=== PATIENT | male | born 1955 | race Caucasian/White ===

== ENCOUNTER → 2016-03-12 | Outpatient (CLI) | payer BC | LOC: OD 08:48 | PROVIDERS: ATTEND Urology | DX: R97.20 Elevated prostate specific antigen [PSA] (principal) | CPT/HCPCS: 36415; 84153 ==

== ENCOUNTER 2016-03-27 13:19 | Emergency (ER) | payer BC ==
--- NOTE | 2016-03-27 14:01 | ER Document Report ---
ED Medical Screen (RME) - General Stated Complaint: URINARY PROBLEM Time seen by provider: 13:58 Mode of Arrival: Ambulatory Information source: Patient TRAVEL OUTSIDE OF THE [place] IN LAST 30 DAYS: No - HPI Patient complains to provider of: BLOOD IN URINE Onset: Just prior to arrival Onset/Duration: Sudden Context: CATHING SELF WAITING ON BLADDER PROCEDURE. HAS SEEN SOME BLOOD IN URINE BUT TODAY LARGE AMOUNT OF BLOOD AND CLOTS ABOUT 12 PM Quality of pain: Achy Severity: Mild Pain Level: 2 Associated Symptoms: Dysuria Exacerbated by: Denies Relieved by: Denies Similar symptoms previously: Yes Recently seen / treated by doctor: Yes - Related Data Smoking: Cigarettes Frequency of alcohol use: None Drug Abuse: None Allergies/Adverse Reactions: No Known Allergies Allergy (Verified 04/14/15 18:10) Physical Exam - Vital signs Vitals: Temp Pulse Resp BP Pulse Ox 97.9 F 96 16 140/82 H 95 03/27/16 13:46 03/27/16 13:46 03/27/16 13:46 03/27/16 13:46 03/27/16 13:46 Course - Vital Signs Vital signs: Temp Pulse Resp BP Pulse Ox 97.9 F 96 16 140/82 H 95 03/27/16 13:46 03/27/16 13:46 03/27/16 13:46 03/27/16 13:46 03/27/16 13:46
--- NOTE | 2016-03-27 17:29 | ER Document Report ---
ED GI/ - General Chief Complaint: Urinary Problem Stated Complaint: URINARY PROBLEM Time seen by provider: 16:40 Mode of Arrival: Ambulatory Information source: Patient, [facility] Records Notes: This 61-year-old male patient comes emergency room complaining of blood in the urine today. He has been self cathetering for the past 2 weeks. He noted some blood in the urine today. While he was in the waiting room he was able to urinate about 40-50 mL's of bloody urine. He was using a coud catheter initially, has used a straight catheter for the past week. He has been seeing Dr. Humphrey. He had a cystoscopy on this one year ago done by Dr. Humphrey. He states he was placed on a medicine that should help him but will take about a year. This sounds like he was placed on a medicine to shrink his prostate gland. He also notes a right groin bulging when he is on his feet for long time. An ultrasound done a year ago showed large post-void residual and a large bladder diverticula. TRAVEL OUTSIDE OF THE [place] IN LAST 30 DAYS: No - Related Data Allergies/Adverse Reactions: No Known Allergies Allergy (Verified 03/27/16 14:01) Past Medical History - General Information source: Patient - Social History Smoking Status: Current Every Day Smoker Cigarette use (# per day): Yes Smoking Education Provided: No Frequency of alcohol use: None Drug Abuse: None Occupation: retired Lives with: Alone Family History: Reviewed & Not Pertinent Patient has suicidal ideation: No Patient has homicidal ideation: No Renal/ Medical History: Reports: Hx Benign Prostatic Hyperplasia Past Surgical History: Reports: Other - Cystoscopy Review of Systems - Review of Systems Constitutional: No symptoms reported EENT: No symptoms reported Cardiovascular: No symptoms reported Respiratory: No symptoms reported Gastrointestinal: No symptoms reported Genitourinary: See HPI Male Genitourinary: See HPI Musculoskeletal: No symptoms reported Skin: No symptoms reported Hematologic/Lymphatic: No symptoms reported Neurological/Psychological: No symptoms reported Physical Exam - Vital signs Vitals: Temp Pulse Resp BP Pulse Ox 97.9 F 96 16 140/82 H 95 03/27/16 13:46 03/27/16 13:46 03/27/16 13:46 03/27/16 13:46 03/27/16 13:46 Interpretation: Normal - General General appearance: Appears well, Alert In distress: None - HEENT Head: Normocephalic, Atraumatic Eyes: Normal Pupils: PERRL - Respiratory Respiratory status: No respiratory distress - Cardiovascular Rhythm: Regular - Abdominal Inspection: Normal Bowel sounds: Normal Tenderness: Nontender - Genitourinary Inspection: Normal Scrotum: Normal Notes: Bilateral inguinal hernias which are felt when the patient strains, the right is larger than the left, they are not tender. - Back Back: Normal - Extremities General upper extremity: Normal inspection General lower extremity: Normal inspection - Neurological Neuro grossly intact: Yes - Psychological Associated symptoms: Normal affect, Normal mood - Skin Skin Temperature: Warm Skin Moisture: Dry Skin Color: Normal Course - Re-evaluation Re-evalutation: 03/27/16 18:57 The urine shows too numerous to count WBCs and too numerous to count RBCs. He was treated here about one year ago for UTI after cystoscopy which was not cultured, but he was treated with Cipro and reports if patient cleared up within 2-3 days. We'll give him a large dose of Keflex and start him on Cipro and see what the culture shows. - Vital Signs Vital signs: Temp Pulse Resp BP Pulse Ox 98.1 F 84 18 126/80 H 100 03/27/16 19:11 03/27/16 19:11 03/27/16 19:11 03/27/16 19:11 03/27/16 19:11 - Laboratory Laboratory results interpreted by me: 03/27/16 17:30 Urine Protein 100 H Urine Blood MODERATE H Urine Nitrite POSITIVE H Ur Leukocyte Esterase MODERATE H Discharge - Discharge Clinical Impression: Urinary tract infection Qualifiers: Urinary tract infection type: acute cystitis Hematuria presence: with hematuria Qualified Code(s): N30.01 - Acute cystitis with hematuria Bilateral inguinal hernia Qualifiers: Obstruction and gangrene presence: without obstruction or gangrene Recurrence: not specified as recurrent Qualified Code(s): K40.20 - Bilateral inguinal hernia , without obstruction or gangrene, not specified as recurrent Condition: Stable Disposition: HOME, SELF-CARE Additional Instructions: Urinary Tract Infection: Your evaluation indicates that you have a urinary tract infection. This is due to germs growing in the bladder. This is a common problem. This infection usually responds quickly to antibiotics. Your antibiotic should be taken exactly as prescribed. Drink plenty of fluids -- three to four quarts a day. Occasionally, a bladder anesthetic will be prescribed to help stop the feeling of urgency until the antibiotic has a chance to clear the infection. This may cause your urine to be dark orange. Certain urine infections require a culture. If the doctor obtained a culture, the results will be back in two days. You should call to see if a change in treatment is needed. A repeat urinalysis after you finish treatment is often recommended. The physician will let you know if further testing is required. Call the doctor if you develop fever, chills, flank pain, inability to urinate, or blood in the urine. TAKE THE MEDICATION PRESCRIBED. DRINK PLENTY OF FLUIDS. DRAIN YOUR BLADDER MORE FREQUENTLY. LAY DOWN, ROLL OVER IN BED, AND STAND UP FREQUENTLY TO PREVENT LARGE CLOTS FROM FORMING IN YOUR BLADDER. FOLLOW UP WITH YOUR UROLOGIST THIS WEEK. Prescriptions: Ciprofloxacin HCl [Cipro 250 mg Tablet] 1 tab PO BID #14 tab Referrals: ALYSSA HUMPHREY MD [ACTIVE STAFF] - Follow up as needed Scribe Attestation: 03/27/16 19:01 I personally performed the services described in the documentation, reviewed and edited the documentation which was dictated to the scribe in my presence, and it accurately records my words and actions.
[2016-03-27 18:29] LABS: APPEARANCE,URINE CLOUDY; BILIRUBIN,URINE NEGATIVE (NEGATIVE); GLUCOSE, URINE NEGATIVE (NEGATIVE); KETONES,URINE NEGATIVE (NEGATIVE); LEUKOCYTE ESTERASE,URINE MODERATE (NEGATIVE); NITRITE,URINE POSITIVE (NEGATIVE); PROTEIN,URINE 100 mg/dL (NEGATIVE); URINE SPECIFIC GRAVITY 1.008; UROBILINOGEN,URINE NEGATIVE mg/dL (<2.0)
[2016-03-27] MEDS ORDERED: SULFAMETHOXAZOLE/TRIMETHOPRIM 800-160 MG TABLET PO ONE (18:50)
[2016-03-27] MEDS ORDERED: CEPHALEXIN 500 MG CAPSULE PO ONE (18:57)
[2016-03-27] MEDS ORDERED: CIPROFLOXACIN HCL 500 MG TABLET PO ONE (18:58)
[2016-03-27 19:12] VITALS: BP 126/80
== END 2016-03-27 19:12 | disposition home or self-care (01) ==
LOC: ER 13:19
DX: N30.01 Acute cystitis with hematuria (principal); K40.20 Bilateral inguinal hernia, without obstruction or gangrene, not specified as recurrent; F17.210 Nicotine dependence, cigarettes, uncomplicated; Z79.899 Other long term (current) drug therapy
CPT/HCPCS: 51701; 81001; 87086; 87088; 87186; 99283

== ENCOUNTER → 2016-03-28 | Outpatient (CLI) | payer BC ==
[~2016-03-28] MED LIST: REGADENOSON INJ 0.4 MG/5 ML DISP.SYRIN IV ONE
--- NOTE | 2016-03-28 18:24 | DRAGON STRESS TEST REPORT ---
INTRAVENOUS LEXISCAN CARDIOLITE STRESS TEST USING SINGLE PHOTON EMMISION COMPUTERIZED TOMOGRAPHIC. DATE OF PROCEDURE: March 28, 2016 INDICATION : Shortness of breath, cardiac clearance CARDIAC RISK FACTORS: Hypertension, dyslipidemia RESTING EKG: Sinus rhythm, no Baseline ST-T wave changes STRESS EKG: No significant changes noted with LexiScan bolus REASON FOR TERMINATION: Protocol. PROCEDURE REPORT: Baseline heart rate 67 beats per minute with blood pressure of on 122/78. Patient had no significant complaints. Heart rate at 2 minutes post bolus 96 with a blood pressure of 109/60. 3 minutes post bolus heart rate 93 with blood pressure of 116/57. No significant EKG changes were noted. Patient had no significant complaints during the procedure or postprocedure. CONCLUSIONS: Normal EKG and hemodynamic response to IV LexiScan. NUCLEAR DATA: At rest the patient was given 11.81 millicuries of technetium 99 sestamibi injected intravenously. As per protocol rest gated SPECT images were obtained. Subsequently the patient was given intravenous LexiScan at a dose of 0.4 mg in 5 mL intravenously, followed by flush with normal saline. Subsequently the stress dose of 35.7 millicuries of technetium 99 sestamibi was injected intravenously. As per protocol stress gated images were obtained. NUCLEAR INTERPRETATION: Both raw and processed data were used for interpretation. Visual, qualitative, computer-generated quantitative data was used. There was good myocardial uptake of technetium compound. Motion artifact and soft tissue attenuations were noted. Increased visceral uptake was noted. No definitive areas of transient perfusion defect noted. No definitive areas of fixed perfusion defect or scars noted. EKG gated imaging showed LV EF at 56 %, rest and stress gated EF similar visually. T. I D. ratio was 1.13. Lung heart ratio noted to be within normal limits 0.31. No significant extracardiac and abnormal radiotracer activities were noted. RV free wall uptake was noted to be normal. IMPRESSION: Also refer to comments under nuclear interpretation. Also test results needs to be interpreted in the context of pretest probability. 1. There is no definitive scintigraphic evidence of LexiScan induced myocardial ischemia. 2. There is no definitive scintigraphic evidence of myocardial infarction/scar. 3. EKG gated imaging shows left ejection fraction of approximately 56 %. 4. Clinical correlation requested as occasionally single vessel disease or balanced ischemia could be missed. In approximately 10% of the cases Lexiscan may not cause adequate vasodilatory stress. RECOMMENDATIONS: Aggressive risk factor modification, medical therapy. Clinical correlation with echocardiogram derived ejection fraction. Inability to exercise by itself can lead to increased cardiovascular event risks. Consider cardiology consultation if clinically indicated. I AM AVAILABLE FOR CARDIOLOGY CONSULTATION AND FOLLOWUP IF REQUESTED BY PMD Kalie Walker M.D., [facility] Installation Coordinator pole peeling machine operator helper, Board certified in cardiovascular diseases, Nuclear cardiology, Echocardiography Cardiac CT and cardiac MRI Ph. [phone] [facility]
== END ==
LOC: RAD 07:48
PROVIDERS: ATTEND Specialist
DX: Z01.810 Encounter for preprocedural cardiovascular examination (principal); R06.09 Other forms of dyspnea; I10 Essential (primary) hypertension; E78.5 Hyperlipidemia, unspecified
CPT/HCPCS: 93017; 78452; A9500; J2785; Q9969

== ENCOUNTER → 2016-04-05 | Outpatient (CLI) | payer BC | LOC: RAD 12:57 | PROVIDERS: ATTEND Urology | DX: N39.0 Urinary tract infection, site not specified (principal) | CPT/HCPCS: 76770 ==

== ENCOUNTER → 2018-12-30 | Outpatient (CLI) | payer MEDICARE, BC ==
--- NOTE | 2018-12-31 13:22 | RADIOLOGY REPORT (SQ) ---
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 TECHNIQUE: Blood glucose level was verified. Above dose of FDG was injected intravenously. 2-D seg mented attenuation correction images were obtained from the base of the skull to the midthighs. Nonc ontrast CT images were obtained for attenuation correction and fusion with emission images. CT image s were performed without oral or intravenous contrast and are not sensitive for parenchymal lesions. A series of overlapping emission PET images were obtained. Images reviewed and manipulated at [facility] work station by the radiologist. Images stored on PACS. LIMITATIONS: None. FINDINGS: HEAD AND NECK: No areas of abnormal metabolic activity in the soft tissues of the head and neck. CHEST: No areas of abnormal metabolic activity in the chest. ABDOMEN AND PELVIS: No areas of abnormal metabolic activity in the abdomen or pelvis. Expected physi ologic activity is present in the genitourinary system and bowel. PROXIMAL LOWER EXTREMITIES: No areas of abnormal metabolic activity in the soft tissues of the lower extremities. BONES: No abnormal metabolic activity in the visualized skeleton. ADDITIONAL CT FINDINGS: No additional significant findings on the noncontrast CT images. OTHER: No other significant findings. IMPRESSION: Negative PET-CT. TECHNICAL DOCUMENTATION: JOB ID: [id number] [employer]- All Rights Reserved Reading location - IP/workstation name: [email or web address]
== END ==
LOC: RAD 16:27
PROVIDERS: ATTEND Student in an Organized Health Care Education/Training Program
DX: D38.4 Neoplasm of uncertain behavior of thymus (principal)
CPT/HCPCS: 78815; A9552

== ENCOUNTER → 2019-03-02 | Outpatient (CLI) | payer MEDICARE, BC ==
--- NOTE | 2019-03-02 10:23 | RADIOLOGY REPORT (SQ) ---
EXAM DESCRIPTION: LUMBAR SPINE COMPLETE COMPLETED DATE/TIME: 03/02/2019 9:35 am REASON FOR STUDY: SPONDYLOLISTHESIS, LUMBAR REGION M43.16 SPONDYLOLISTHESIS, LUMBAR REGION COMPARISON: None. NUMBER OF VIEWS: Five views including obliques. TECHNIQUE: AP, lateral, oblique, and sacral radiographic images acquired of the lumbar spine. LIMITATIONS: None. FINDINGS: MINERALIZATION: Osteopenia. SEGMENTATION: Normal. No transitional anatomy. ALIGNMENT: Minimal grade 1 listhesis L4-5. VERTEBRAE: Maintained height. No fracture or worrisome bone lesion. DISCS: Multilevel marked disc space narrowing with associated osteophytes. POSTERIOR ELEMENTS: Pedicles and facets are intact. No pars defect or posterior arch defects. Facet arthropathy is present. HARDWARE: None in the spine. PARASPINAL SOFT TISSUES: Normal. PELVIS: Intact as visualized. No fractures or worrisome bone lesions. SI joints intact. OTHER: No other significant finding. IMPRESSION: SPONDYLOSIS WITHOUT BONE LESION OR FRACTURE. TECHNICAL DOCUMENTATION: JOB ID: [id number] [employer]- All Rights Reserved Reading location - IP/workstation name: [email or web address]
== END ==
LOC: OD 09:15
PROVIDERS: ATTEND Student in an Organized Health Care Education/Training Program
DX: M43.16 Spondylolisthesis, lumbar region (principal)
CPT/HCPCS: 72110